=== PATIENT | female | born 1985 | race American Indian/Alaskan Native ===

== ENCOUNTER 2017-07-14 18:41 | Emergency (ER) | payer OTHER ==
[2017-07-14] MEDS ORDERED: DUONEB *Not for PRN Use IH ONE (21:11)
[2017-07-14] MEDS ORDERED: PHENERGAN/CODEINE 6.25-10 MG/5ML PO ONE (22:48)
[2017-07-14] MEDS ORDERED: DECADRON IM ONE (22:48)
--- NOTE | 2017-07-14 23:17 | XRay Report ---
FINAL REPORT PROCEDURE: XR CHEST ROUTINE 2V TECHNIQUE: PA and lateral chest radiographs were obtained. CPT 53320 HISTORY: cough COMPARISON: No prior studies are available for comparison. FINDINGS: Heart: Normal. Mediastinum/Vessels: Normal. Lungs/Pleural space: Normal. Bony thorax: No acute osseous abnormality. Other: IMPRESSION: Negative examination.
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
[2017-07-15 00:38] VITALS: BP 120/60
== END 2017-07-15 00:39 | disposition home or self-care (01) ==
LOC: ED 18:41
DX: J45.901 Unspecified asthma with (acute) exacerbation (principal); M54.2 Cervicalgia; F17.200 Nicotine dependence, unspecified, uncomplicated; V49.49XA Driver injured in collision with other motor vehicles in traffic accident, initial encounter; Y93.9 Activity, unspecified; Y92.9 Unspecified place or not applicable; Y99.9 Unspecified external cause status
CPT/HCPCS: 71020; 72040; 81025; 87116; 87430; 94640; 96372; 99284; J1100

== ENCOUNTER 2017-11-10 03:53 | Emergency (ER) | payer OTHER ==
[2017-11-10 04:01] VITALS: BP 156/103
[2017-11-10] MEDS ORDERED: TORADOL ONE (05:17)
[2017-11-10] MEDS ORDERED: TORADOL IM ONE (05:34)
[2017-11-10 05:56] LABS: Basophils % (Auto) 0.5 % (0.0-1.8); Eosinophils % (Auto) 0.5 % (0.0-4.3); Hematocrit 41.2 % (30.3-42.9); Hemoglobin 13.4 gm/dl (10.1-14.3); Lymphocytes # (Auto) 1.3 K/mm3 (1.2-5.4); Lymphocytes % (Auto) 24.9 % (13.4-35.0); Mean Corpuscular HGB Conc 33 % (30-34); Mean Corpuscular Hemoglobin 27 pg (28-32); Mean Corpuscular Volume 83 fl (79-97); Monocytes # (Auto) 0.3 K/mm3 (0.0-0.8); Monocytes % (Auto) 5.3 % (0.0-7.3); Platelet Count 243 K/mm3 (140-440); Red Blood Count 4.99 M/mm3 (3.65-5.03); Red Cell Distribution Width 14.2 % (13.2-15.2)
[2017-11-10 06:12] LABS: Alanine Aminotransferase 10 units/L (7-56); Albumin 4.5 g/dL (3.9-5); BUN/Creatinine Ratio 14; Blood Urea Nitrogen 10 mg/dL (7-17); Calcium 9.4 mg/dL (8.4-10.2); Hemolysis Index 5; Lipase 21 units/L (13-60)
[2017-11-10 07:02] LABS: Bilirubin,Urine NEG (Negative); Blood,Urine NEG (Negative); Color,Urine Yellow (Yellow); Mucus,Urine 1+ /HPF; Nitrite,Urine NEG (Negative); Urobilinogen,Urine < 2.0 mg/dL (<2.0)
[2017-11-10] MEDS ORDERED: ALUM-MAG HYDROX-SIMETH 200-200-20MG/5ML PO ONE (12:57)
--- NOTE | 2017-11-10 13:09 | Emergency Department Report ---
ED Abdominal Pain HPI - General Chief Complaint: Abdominal Pain Stated Complaint: CHEST PAIN/ SOB Time Seen by Provider: 11/10/17 12:52 Source: patient Mode of arrival: Ambulatory Limitations: No Limitations - History of Present Illness MD Complaint: abdominal pain Onset/Timin -: days(s) Location: LUQ, epigastric Radiation: none Migration to: no migration Severity: mild Severity scale (0 -10): 4 Quality: cramping, burning Consistency: constant, now resolved Improves With: other (time) Worsens With: nothing Context: possible food poisoning (pt ate some [employer] and several hours later had this abd pain) - Related Data Previous Rx's Medication Instructions Recorded Last Taken Type ALBUTEROL Inhaler [Proair] 1 puff IH BID #1 inha 07/15/17 Unknown Rx Fluticasone [Flonase] 1 spray NS QDAY #1 bottle 07/15/17 Unknown Rx guaiFENesin [Tussin Mucus-Chest 5 ml PO BID #118 ml 07/15/17 Unknown Rx Congestion] methOCARBAMOL [Robaxin TAB] 500 mg PO TID #15 tab 07/15/17 Unknown Rx Dicyclomine [Bentyl] 20 mg PO QID #12 tablet 11/10/17 Unknown Rx Famotidine [Pepcid] 20 mg PO BID #12 tablet 11/10/17 Unknown Rx Nitrofurantoin Monohyd/M-Cryst 100 mg PO BID #14 capsule 11/10/17 Unknown Rx [Macrobid 100 mg Capsule] Allergies Allergy/AdvReac Type Severity Reaction Status Date / Time No Known Allergies Allergy Verified 07/14/17 22:55 ED Review of Systems ROS: Stated complaint: CHEST PAIN/ SOB Other details as noted in HPI Constitutional: denies: chills, fever Eyes: denies: eye pain, eye discharge, vision change ENT: denies: ear pain, throat pain Respiratory: denies: cough, shortness of breath, wheezing Cardiovascular: denies: chest pain, palpitations Endocrine: no symptoms reported Gastrointestinal: abdominal pain, nausea. denies: diarrhea, constipation Genitourinary: denies: urgency, dysuria, discharge Musculoskeletal: denies: back pain, joint swelling, arthralgia Skin: denies: rash, lesions Neurological: denies: headache, weakness, paresthesias Psychiatric: denies: anxiety, depression Hematological/Lymphatic: denies: easy bleeding, easy bruising ED Past Medical Hx - Past Medical History Previous Medical History?: No - Surgical History Additional Surgical History: tubal ligation - Social History Smoking Status: Current Every Day Smoker Substance Use Type: None - Medications Home Medications: Home Medications Medication Instructions Recorded Confirmed Last Taken Type ALBUTEROL Inhaler [Proair] 1 puff IH BID #1 inha 07/15/17 Unknown Rx Fluticasone [Flonase] 1 spray NS QDAY #1 bottle 07/15/17 Unknown Rx guaiFENesin [Tussin Mucus-Chest 5 ml PO BID #118 ml 07/15/17 Unknown Rx Congestion] methOCARBAMOL [Robaxin TAB] 500 mg PO TID #15 tab 07/15/17 Unknown Rx Dicyclomine [Bentyl] 20 mg PO QID #12 tablet 11/10/17 Unknown Rx Famotidine [Pepcid] 20 mg PO BID #12 tablet 11/10/17 Unknown Rx Nitrofurantoin Monohyd/M-Cryst 100 mg PO BID #14 capsule 11/10/17 Unknown Rx [Macrobid 100 mg Capsule] ED Physical Exam - General Limitations: No Limitations General appearance: alert, in no apparent distress - Head Head exam: Present: atraumatic, normocephalic - Eye Eye exam: Present: normal appearance - ENT ENT exam: Present: mucous membranes moist - Neck Neck exam: Present: normal inspection - Respiratory Respiratory exam: Present: normal lung sounds bilaterally. Absent: respiratory distress - Cardiovascular Cardiovascular Exam: Present: regular rate, normal rhythm. Absent: systolic murmur, diastolic murmur, rubs, gallop - GI/Abdominal GI/Abdominal exam: Present: soft, normal bowel sounds - Extremities Exam Extremities exam: Present: normal inspection - Back Exam Back exam: Present: normal inspection - Neurological Exam Neurological exam: Present: alert, oriented X3 - Psychiatric Psychiatric exam: Present: normal affect, normal mood - Skin Skin exam: Present: warm, dry, intact, normal color. Absent: rash ED Course Vital Signs 11/10/17 11/10/17 03:57 05:24 Temperature 97.4 F L 97.4 F L Pulse Rate 97 H 97 H Respiratory 22 16 Rate Blood Pressure 156/103 156/103 O2 Sat by Pulse 100 100 Oximetry ED Medical Decision Making - Lab Data Result diagrams: 11/10/17 05:35 11/10/17 05:35 Lab Results 11/10/17 11/10/17 11/10/17 Range/Units 05:35 05:35 05:35 WBC 5.4 (4.5-11.0) K/mm3 RBC 4.99 (3.65-5.03) M/mm3 Hgb 13.4 (10.1-14.3) gm/dl Hct 41.2 (30.3-42.9) % MCV 83 (79-97) fl MCH 27 L (28-32) pg MCHC 33 (30-34) % RDW 14.2 (13.2-15.2) % Plt Count 243 (140-440) K/mm3 Lymph % (Auto) 24.9 (13.4-35.0) % [place] % (Auto) 5.3 (0.0-7.3) % Eos % (Auto) 0.5 (0.0-4.3) % Baso % (Auto) 0.5 (0.0-1.8) % Lymph # 1.3 (1.2-5.4) K/mm3 [place] # 0.3 (0.0-0.8) K/mm3 Eos # 0.0 (0.0-0.4) K/mm3 Baso # 0.0 (0.0-0.1) K/mm3 Seg Neutrophils % 68.8 (40.0-70.0) % Seg Neutrophils # 3.7 (1.8-7.7) K/mm3 Sodium 139 (137-145) mmol/L Potassium 3.9 (3.6-5.0) mmol/L Chloride 103.3 (98-107) mmol/L Carbon Dioxide 24 (22-30) mmol/L Anion Gap 16 mmol/L BUN 10 (7-17) mg/dL Creatinine 0.7 (0.7-1.2) mg/dL Estimated GFR > 60 ml/min BUN/Creatinine Ratio 14 % Glucose 128 H (65-100) mg/dL Calcium 9.4 (8.4-10.2) mg/dL Total Bilirubin 0.30 (0.1-1.2) mg/dL AST 12 (5-40) units/L ALT 10 (7-56) units/L Alkaline Phosphatase 61 (35-129) units/L Total Protein 8.1 (6.3-8.2) g/dL Albumin 4.5 (3.9-5) g/dL Albumin/Globulin Ratio 1.3 % Lipase 21 (13-60) units/L HCG, Qual Negative (Negative) Urine Color (Yellow) Urine Turbidity (Clear) Urine pH (5.0-7.0) Ur Specific [place] (1.003-1.030) Urine Protein (Negative) mg/dL Urine Glucose (UA) (Negative) mg/dL Urine Ketones (Negative) mg/dL Urine Blood (Negative) Urine Nitrite (Negative) Urine Bilirubin (Negative) Urine Urobilinogen (<2.0) mg/dL Ur Leukocyte Esterase (Negative) Urine WBC (Auto) (0.0-6.0) /HPF Urine RBC (Auto) (0.0-6.0) /HPF U Epithel Cells (Auto) (0-13.0) /HPF Urine Mucus /HPF 11/10/17 Range/Units 06:33 WBC (4.5-11.0) K/mm3 RBC (3.65-5.03) M/mm3 Hgb (10.1-14.3) gm/dl Hct (30.3-42.9) % MCV (79-97) fl MCH (28-32) pg MCHC (30-34) % RDW (13.2-15.2) % Plt Count (140-440) K/mm3 Lymph % (Auto) (13.4-35.0) % [place] % (Auto) (0.0-7.3) % Eos % (Auto) (0.0-4.3) % Baso % (Auto) (0.0-1.8) % Lymph # (1.2-5.4) K/mm3 [place] # (0.0-0.8) K/mm3 Eos # (0.0-0.4) K/mm3 Baso # (0.0-0.1) K/mm3 Seg Neutrophils % (40.0-70.0) % Seg Neutrophils # (1.8-7.7) K/mm3 Sodium (137-145) mmol/L Potassium (3.6-5.0) mmol/L Chloride (98-107) mmol/L Carbon Dioxide (22-30) mmol/L Anion Gap mmol/L BUN (7-17) mg/dL Creatinine (0.7-1.2) mg/dL Estimated GFR ml/min BUN/Creatinine Ratio % Glucose (65-100) mg/dL Calcium (8.4-10.2) mg/dL Total Bilirubin (0.1-1.2) mg/dL AST (5-40) units/L ALT (7-56) units/L Alkaline Phosphatase (35-129) units/L Total Protein (6.3-8.2) g/dL Albumin (3.9-5) g/dL Albumin/Globulin Ratio % Lipase (13-60) units/L HCG, Qual (Negative) Urine Color Yellow (Yellow) Urine Turbidity Clear (Clear) Urine pH 8.0 H (5.0-7.0) Ur Specific [place] 1.025 (1.003-1.030) Urine Protein 100 mg/dl (Negative) mg/dL Urine Glucose (UA) Neg (Negative) mg/dL Urine Ketones Neg (Negative) mg/dL Urine Blood Neg (Negative) Urine Nitrite Neg (Negative) Urine Bilirubin Neg (Negative) Urine Urobilinogen < 2.0 (<2.0) mg/dL Ur Leukocyte Esterase Mod (Negative) Urine WBC (Auto) 6.0 (0.0-6.0) /HPF Urine RBC (Auto) 2.0 (0.0-6.0) /HPF U Epithel Cells (Auto) 6.0 (0-13.0) /HPF Urine Mucus 1+ /HPF - EKG Data -: EKG Interpreted by Mi EKG shows normal: sinus rhythm, axis, intervals, QRS complexes, ST-T waves Rate: normal - EKG Data Interpretation: normal EKG - Medical Decision Making Patient is a 32-year-old female who ate some [employer] is now having some upper abdominal pain. Patient received some Zofran earlier was did help she will be also given some Maalox and sent home with Pepcid. Patient did have a a symptomatic UTI as well she has had 4 children with vaginal deliveries and may have some disruption of the normal UTI symptoms. Patient be discharged home at this time. Critical care attestation.: If time is entered above; I have spent that time in minutes in the direct care of this critically ill patient, excluding procedure time. ED Disposition Clinical Impression: Gastritis Qualifiers: Gastritis type: unspecified gastritis Chronicity: acute Gastritis bleeding: without bleeding Qualified Code(s): K29.00 - Acute gastritis without bleeding Acute cystitis Qualifiers: Hematuria presence: without hematuria Qualified Code(s): N30.00 - Acute cystitis without hematuria Disposition: - TO HOME OR SELFCARE Is pt being admited?: No Does the pt Need Aspirin: No Condition: Stable Instructions: Abdominal Pain (ED), Gastritis (ED), Urinary Tract Infection in Women (ED) Prescriptions: Dicyclomine [Bentyl] 20 mg PO QID #12 tablet Famotidine [Pepcid] 20 mg PO BID #12 tablet Nitrofurantoin Monohyd/M-Cryst [Macrobid 100 mg Capsule] 100 mg PO BID #14 capsule Referrals: PRIMARY CARE, [Primary Care Provider] - 3-5 Days
== END 2017-11-10 13:23 | disposition home or self-care (01) ==
LOC: ED 03:53
DX: K29.00 Acute gastritis without bleeding (principal); N30.00 Acute cystitis without hematuria; F17.200 Nicotine dependence, unspecified, uncomplicated
CPT/HCPCS: 36415; 80053; 81001; 83690; 84703; 85025; 93005; 93010; 96372; 99283; J1885

== ENCOUNTER 2018-10-15 22:37 | Emergency (ER) | payer SELFPAY ==
[2018-10-15 23:33] LABS: Bacteria,Urine 1+ /HPF (Negative); Bilirubin,Urine NEG (Negative); Blood,Urine LG (Negative); Color,Urine Yellow (Yellow); Mucus,Urine FEW /HPF; Protein,Urine <15 mg/dL mg/dL (Negative)
[2018-10-15 23:37] LABS: HCG Qualitative,Urine Negative (Negative)
[2018-10-16] MEDS ORDERED: XYLOCAINE 1% MPF 5 mL INFILTRATI ONE (06:41)
[2018-10-16] MEDS ORDERED: ROCEPHIN IM ONE (06:41)
--- NOTE | 2018-10-16 06:46 | Emergency Department Report ---
ED Female HPI - General Chief complaint: Urogenital-Female Stated complaint: UTI Time Seen by Provider: 10/16/18 06:40 Source: patient Mode of arrival: Ambulatory Limitations: No Limitations - History of Present Illness Initial comments: Patient is a 33-year-old female diagnosed with UTI 1 week ago states she was unable to afford Macrobid however visits for same symptoms tonight including urinary frequency urgency dysuria last menstrual period was 2 weeks ago there's no fevers no chills no no nausea vomiting no abdominal pain as suprapubic spasms there is no vaginal discharge patient states her nose a UTI this or the medicine. Symptoms are exacerbated of reporting symptoms are relieved but nothing patient denies history of renal stones MD Complaint: dysuria Onset/Timin -: week(s) Severity: moderate Severity scale (0 -10): 4 Quality: other (sting fouls smell ) Consistency: intermittent Improves with: none Worsens with: urination Are you Now?: No Last Menstrual Period: 09/24/18 EDC: 07/01/19 Associated Symptoms: dysuria - Related Data Sexually active: No Previous Rx's Medication Instructions Recorded Last Taken Type ALBUTEROL Inhaler (OR & NICU) 1 puff IH BID #1 inha 07/15/17 Unknown Rx [Proair] Fluticasone [Flonase] 1 spray NS QDAY #1 bottle 07/15/17 Unknown Rx guaiFENesin [Tussin Mucus-Chest 5 ml PO BID #118 ml 07/15/17 Unknown Rx Congestion] methOCARBAMOL [Robaxin TAB] 500 mg PO TID #15 tab 07/15/17 Unknown Rx Dicyclomine [Bentyl] 20 mg PO QID #12 tablet 11/10/17 Unknown Rx Famotidine [Pepcid] 20 mg PO BID #12 tablet 11/10/17 Unknown Rx Ibuprofen [Motrin 600 MG tab] 600 mg PO Q8H PRN #24 tablet 10/09/18 Unknown Rx Nitrofurantoin Monohyd/M-Cryst 100 mg PO BID #14 capsule 10/09/18 Unknown Rx [Macrobid 100 mg Capsule] Sulfamethoxazole/Trimethoprim 1 each PO BID #20 tablet 10/16/18 Unknown Rx [Bactrim DS TAB] Allergies Allergy/AdvReac Type Severity Reaction Status Date / Time No Known Allergies Allergy Verified 07/14/17 22:55 ED Review of Systems ROS: Stated complaint: UTI Other details as noted in HPI Constitutional: denies: chills, fever Eyes: denies: eye pain, eye discharge, vision change ENT: denies: ear pain, throat pain Respiratory: denies: cough, shortness of breath, wheezing Cardiovascular: denies: chest pain, palpitations Endocrine: no symptoms reported Gastrointestinal: denies: abdominal pain, nausea, diarrhea Genitourinary: urgency, dysuria, frequency, hematuria (pink to wiping ). denies: discharge, abnormal menses, dyspareunia Musculoskeletal: denies: back pain, joint swelling, arthralgia Skin: denies: rash, lesions Neurological: denies: headache, weakness, paresthesias Psychiatric: denies: anxiety, depression Hematological/Lymphatic: denies: easy bleeding, easy bruising ED Past Medical Hx - Past Medical History Previous Medical History?: No - Surgical History Past Surgical History?: Yes Additional Surgical History: tubal ligation - Social History Smoking Status: Never Smoker Substance Use Type: None - Medications Home Medications: Home Medications Medication Instructions Recorded Confirmed Last Taken Type ALBUTEROL Inhaler (OR & NICU) 1 puff IH BID #1 inha 07/15/17 Unknown Rx [Proair] Fluticasone [Flonase] 1 spray NS QDAY #1 bottle 07/15/17 Unknown Rx guaiFENesin [Tussin Mucus-Chest 5 ml PO BID #118 ml 07/15/17 Unknown Rx Congestion] methOCARBAMOL [Robaxin TAB] 500 mg PO TID #15 tab 07/15/17 Unknown Rx Dicyclomine [Bentyl] 20 mg PO QID #12 tablet 11/10/17 Unknown Rx Famotidine [Pepcid] 20 mg PO BID #12 tablet 11/10/17 Unknown Rx Ibuprofen [Motrin 600 MG tab] 600 mg PO Q8H PRN #24 tablet 10/09/18 Unknown Rx Nitrofurantoin Monohyd/M-Cryst 100 mg PO BID #14 capsule 10/09/18 Unknown Rx [Macrobid 100 mg Capsule] Sulfamethoxazole/Trimethoprim 1 each PO BID #20 tablet 10/16/18 Unknown Rx [Bactrim DS TAB] ED Physical Exam - General Limitations: No Limitations General appearance: alert, in no apparent distress - Head Head exam: Present: atraumatic, normocephalic - Eye Eye exam: Present: normal appearance - ENT ENT exam: Present: mucous membranes moist - Neck Neck exam: Present: normal inspection - Respiratory Respiratory exam: Present: normal lung sounds bilaterally. Absent: respiratory distress - Cardiovascular Cardiovascular Exam: Present: regular rate, normal rhythm. Absent: systolic murmur, diastolic murmur, rubs, gallop - GI/Abdominal GI/Abdominal exam: Present: soft, normal bowel sounds. Absent: distended, tenderness, guarding, rebound, rigid, bruit, hernia - Rectal Rectal exam: Present: deferred - Extremities Exam Extremities exam: Present: normal inspection - Back Exam Back exam: Present: normal inspection, full ROM. Absent: tenderness, CVA tenderness (R), CVA tenderness (L), muscle spasm, rash noted - Neurological Exam Neurological exam: Present: alert, oriented X3, normal gait - Psychiatric Psychiatric exam: Present: normal affect, normal mood - Skin Skin exam: Present: warm, dry, intact, normal color. Absent: rash ED Course Vital Signs 10/15/18 10/16/18 10/16/18 22:44 04:35 05:25 Temperature 98.0 F 98.2 F Pulse Rate 82 67 Respiratory 16 20 18 Rate Blood Pressure 139/84 Blood Pressure 131/80 [Right] O2 Sat by Pulse 99 97 Oximetry ED Medical Decision Making - Lab Data Labs 10/15/18 23:14 Urine Color Yellow Urine Turbidity Cloudy Urine pH 6.0 Ur Specific [place] 1.026 Urine Protein <15 mg/dl Urine Glucose (UA) Neg Urine Ketones Neg Urine Blood Lg Urine Nitrite Neg Urine Bilirubin Neg Urine Urobilinogen 2.0 Ur Leukocyte Esterase Lg Urine WBC (Auto) 4.0 Urine RBC (Auto) 2.0 U Epithel Cells (Auto) 16.0 H Urine Bacteria (Auto) 1+ Urine Mucus Few Urine HCG, Qual Negative - Medical Decision Making This is a uti with mild hematuria, plan tx with rocephin 1gm IM in ed, rx for bactrim DS po bid x 10 days 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 Critical care attestation.: If time is entered above; I have spent that time in minutes in the direct care of this critically ill patient, excluding procedure time. ED Disposition Clinical Impression: UTI (urinary tract infection) Qualifiers: Urinary tract infection type: acute cystitis Hematuria presence: with hematuria Qualified Code(s): N30.01 - Acute cystitis with hematuria Disposition: TO HOME OR SELFCARE Is pt being admited?: No Does the pt Need Aspirin: No Condition: Stable Instructions: Urinary Tract Infection in Women (ED) Prescriptions: Sulfamethoxazole/Trimethoprim [Bactrim DS TAB] 1 each PO BID #20 tablet Referrals: [facility] [Outside] - 3-5 Days Forms: Work/School Release Form(ED) Time of Disposition: 06:49
[2018-10-16 07:21] VITALS: BP 134/81
== END 2018-10-16 07:21 | disposition home or self-care (01) ==
LOC: ED 22:37
DX: R39.15 Urgency of urination (principal); N30.01 Acute cystitis with hematuria; Z98.51 Tubal ligation status
CPT/HCPCS: 81001; 81025; 96372; 99283; J0696